=== PATIENT | female | born 1955 | race Two or more races ===

== ENCOUNTER 2017-11-04 15:31 | Inpatient (IN) | payer BC ==
[~2017-11-04] VITALS: Ht 170.2 cm; Wt 50.8 kg
[2017-11-04] MEDS ORDERED: IV NORMAL SALINE 1000 ML BAG IV ONE (15:45)
--- NOTE | 2017-11-04 15:49 | NUR ---
PT IS IN ROOM #1B. DR DUVAL EVALUATED THE PT.
[2017-11-04 15:56] LABS: BASOPHILS % (AUTO) 0.3 % (0.0-2.0); HEMATOCRIT 43.6 % (31.2-41.9); HEMOGLOBIN 14.5 g/dL (10.9-14.3); LYMPHOCYTES # (AUTO) 2.2 K/uL (20.0-40.0); LYMPHOCYTES % (AUTO) 18.3 % (20.5-51.5); MEAN CORPUSCULAR HEMOGLOBIN 30.3 uug (24.7-32.8); MEAN CORPUSCULAR HGB CONC 33 g/dL (32.3-35.6); MONOCYTES # (AUTO) 1.3 K/uL (2.0-10.0); MONOCYTES % (AUTO) 10.8 % (0.0-11.0); NEUTROPHILS # (AUTO) 8.5 K/uL (1.8-8.9); NEUTROPHILS % (AUTO) 70.6 % (38.5-71.5); PLATELET COUNT (AUTO) 234 K/uL (179-408); RED BLOOD CELL COUNT(AUTO) 4.79 MIL/uL (3.63-4.92)
[2017-11-04 16:03] LABS: POTASSIUM 3.5 mmol/L (3.5-5.1)
[2017-11-04 16:08] LABS: BILIRUBIN,DIRECT 0.2 mg/dL (0.0-0.2); TOTAL PROTEIN, SERUM 8.3 g/dL (6.4-8.2)
--- NOTE | 2017-11-04 16:33 | NUR ---
Contacted [email or web address] for admittion panel, awaiting call back from Dr Vazquez.
[2017-11-04 16:36] LABS: *BLOOD, URINE 3+ (NEGATIVE); *CLARITY,URINE SLIGHTLY CLOUDY (CLEAR); *COLOR,URINE Brown (YELLOW); *KETONES,URINE 1+ (NEGATIVE); *PROTEIN,URINE 2+ (NEGATIVE); *UROBILINOGEN,URINE 0.2 E.U./dl (NORMAL); LEUKOCYTE ESTERASE ,URINE 2+ (NEGATIVE); NITRITE, URINE NEGATIVE (NEGATIVE); UGLUCOSE NEGATIVE (NEGATIVE)
[2017-11-04] MEDS ORDERED: AMOXICILLIN TRIHYDRATE 250 MG CAPSULE PO ONE (16:45)
[2017-11-04] MEDS ORDERED: CLINDAMYCIN PHOSPHATE IV 600 MG in IV DEXTROSE 5% 100 ML IV ONE (16:45)
[2017-11-04 16:46] LABS: *BILIRUBIN,URIN 1+ (NEGATIVE)
[2017-11-04] MEDS ORDERED: CLINDAMYCIN PHOSPHATE 600 MG/4 ML VIAL ONE (16:50)
[2017-11-04] MEDS ORDERED: AMLODIPINE 5 MG TABLET ONE (16:56)
[2017-11-04 16:59] LABS: RBC,URINE 20-50 /HPF (0-3)
[2017-11-04 17:00] LABS: BACTERIA,URINE FEW /HPF (NONE SEEN); SQUAMOUS EPITHELIAL CELL,UR FEW /HPF (NONE SEEN); WBC,URINE 20-50 /HPF (0-3)
[2017-11-04] MEDS ORDERED: AMLODIPINE 5 MG TABLET PO ONE (17:00)
--- NOTE | 2017-11-04 17:49 | NUR ---
REPORT WAS GIVEN TO DRAPERY AND UPHOLSTERY ESTIMATOR. PT WAS TRANSFERED TO TELEMETRY ROOM #211.
--- NOTE | 2017-11-04 18:15 | NUR ---
RECEIVED PATIENT FROM ER VIA GURNEY. PT ALERT, IN NO DISTRESS. PT ADMITTED TO TELE UNDER THE CARE OF DR. KONG. DX: SYNCOPE. BELONGING LIST, ADMISSION PROCESS AND CARE PLAN INITIATED. NOTIFIED FOR NEW ADMISSION ORDERS.
[2017-11-04 18:20] VITALS: BP 163/94
--- NOTE | 2017-11-04 18:20 | NUR ---
PATIENT NOTED TO HAVE RIGHT LOWER JAW SWELLING DUE TO DENTAL ABSCESS REPORTED BY PATIENT.
[2017-11-04 18:40] VITALS: BP 158/95
[2017-11-04 19:00] VITALS: BP 139/81
--- NOTE | 2017-11-04 19:15 | NUR ---
RECEIVED PT AWAKE, ALERT, AND ORIENTEDX4. PT SHOWS NO SIGNS OF DISTRESS.PT NO COMPLAINT OF DIZZINESS AND SOB. PT IV INTACT AND PATENT. CALL LIGHT WITHIN REACH. BED ALARM . SAFETY AND COMFORT PROVIDED. WILL CONTINUE TO MONITOR.
[2017-11-04] MEDS ORDERED: ZOLPIDEM 5 MG TABLET PO PRN (20:15)
[2017-11-04] MEDS ORDERED: ONDANSETRON 4 MG/2 ML VIAL IV PRN (20:15)
[2017-11-04] MEDS ORDERED: Z GUARD REMEDY PASTE 57 GM TUBE TOP PRN (20:15)
[2017-11-04] MEDS ORDERED: ACETAMINOPHEN 325 MG TABLET PO PRN (20:15)
[2017-11-04] MEDS ORDERED: MAGNESIUM HYDROXIDE 30 ML LIQUID UDC PO PRN (20:15)
[2017-11-04] MEDS: IV NS 1000 ML 1,000 ML IV PRN (20:36)
[2017-11-04] MEDS ORDERED: CEFTRIAXONE 1 G in IV DEXTROSE 5% 50 ML IV SCH (21:00)
[2017-11-04] MEDS ORDERED: ENOXAPARIN SODIUM 40 MG/0.4 ML DISP.SYRIN SQ SCH (21:00)
[2017-11-05] VITALS: BP 122/79
[2017-11-05 04:00] VITALS: BP 132/80
[2017-11-05 06:37] LABS: BASOPHILS % (AUTO) 0.5 % (0.0-2.0); EOSINOPHILS % (AUTO) 0.4 % (0.0-7.0); HEMATOCRIT 37.2 % (31.2-41.9); LYMPHOCYTES # (AUTO) 3.1 K/uL (20.0-40.0); LYMPHOCYTES % (AUTO) 35.8 % (20.5-51.5); MEAN CORPUSCULAR HEMOGLOBIN 30.7 uug (24.7-32.8); MEAN CORPUSCULAR HGB CONC 34 g/dL (32.3-35.6); MEAN CORPUSCULAR VOLUME 90.8 fL (75.5-95.3); MONOCYTES # (AUTO) 1.1 K/uL (2.0-10.0); MONOCYTES % (AUTO) 12.6 % (0.0-11.0); NEUTROPHILS # (AUTO) 4.3 K/uL (1.8-8.9); NEUTROPHILS % (AUTO) 50.7 % (38.5-71.5); PLATELET COUNT (AUTO) 201 K/uL (179-408)
[2017-11-05 06:38] LABS: BILIRUBIN,TOTAL 0.6 mg/dL (0.2-1.0); CREATININE 0.7 mg/dL (0.6-1.3); MAGNESIUM 1.8 mg/dL (1.8-2.4); PHOSPHOROUS 3.2 mg/dL (2.5-4.9); POTASSIUM 3.8 mmol/L (3.5-5.1); TOTAL PROTEIN, SERUM 6.4 g/dL (6.4-8.2)
[2017-11-05 06:45] LABS: THYROID STIMULATING HORMONE 0.311 mIU/mL (0.358-3.740)
[2017-11-05 06:53] LABS: HEMOGLOBIN 12.6 g/dL (10.9-14.3); WHITE BLOOD COUNT (AUTO) 8.5 K/uL (3.8-11.8)
--- NOTE | 2017-11-05 06:54 | NUR ---
PT SLEPT THROUGHOUT THE SHIFT.PT SHOWS NO SIGNS OF DISTRESS. PRESCRIBED MEDICATION GIVEN AND PT TOLERATED IT WELL. IV INTACT. SAFETY AND COMFORT PROVIDED. WILL ENDORSE TO INCOMING NURSE FOR CONTINUITY OF CARE.
--- NOTE | 2017-11-05 08:00 | NUR ---
AWAKE COOPERATE WELL NO SOB OR DIZZINESS OR PAIN ON FALL PRECAUTION CALL LIGHT IN REACH AND BED ALARM ON,CONTINUE IVF ONLFA INFUSION WELL
[2017-11-05] MEDS: IV NS 1000 ML 1,000 ML IV PRN (08:52)
[2017-11-05] MEDS ORDERED: ASPIRIN EC 81 MG TABLET.DR PO SCH (09:00)
[2017-11-05 10:00] VITALS: BP_SYST 133; BP_SYST 134; BP_SYST 165; BP_DIAS 83; BP_DIAS 87; BP_DIAS 93
--- NOTE | 2017-11-05 10:30 | NUR ---
D/C INSTRUCTION REGARDING F/U WITH OWN PMD AND DENTIST AND CONTINUE MEDICATION DENTIST PROVIDED/ANTIBIOTICS AND EDUCATION PK GIVE ,UNDERSTAND AND SIGNS D/C SHEET HL WAS DISCONTINUE PRIOR D/C HOME TODAY ,NO DIZZINESS OR PAIN
[2017-11-05 11:43] VITALS: BP 145/84
--- NOTE | 2017-11-05 12:00 | NUR ---
DR GONZALES SEEN PATIENT AND TELE WAS D/C ORDER
--- NOTE | 2017-11-05 13:30 | NUR ---
D/C HOME ACCOMPANIES WITH SON CONDITION STABLE
== END 2017-11-05 13:30 | disposition home or self-care (01) | DRG 48 ==
LOC: ER 15:32 → TELE 17:53
PROVIDERS: ADMIT Nurse Practitioner Acute Care; ATTEND Nurse Practitioner Acute Care
DX: G90.8 Other disorders of autonomic nervous system (principal); I11.9 Hypertensive heart disease without heart failure; D72.829 Elevated white blood cell count, unspecified; K04.7 Periapical abscess without sinus; Z85.41 Personal history of malignant neoplasm of cervix uteri; N39.0 Urinary tract infection, site not specified; F17.210 Nicotine dependence, cigarettes, uncomplicated; Z71.6 Tobacco abuse counseling; Z86.39 Personal history of other endocrine, nutritional and metabolic disease
CPT/HCPCS: 36415; 70030-TC; 71045; 83735; 84100; 84443; 85025; 85730; 87040; 93005; 93307; 93880; A4663; J0696; J1650; J3490; J7030; J7060

== ENCOUNTER 2018-02-09 11:22 | Emergency (ER) | payer BC, MEDICAID ==
[~2018-02-09] VITALS: Ht 170.2 cm; Wt 59.0 kg
--- NOTE | 2018-02-09 11:47 | NUR ---
RECECIVED A 62 Y/O FEMALE PT C/O LOWER RT JAW PAIN , NOTED SWOLEN RT SIDE FACE. PT PUT IN ROOM, AWAITING TO BE SEEN BY
[2018-02-09] MEDS ORDERED: CLINDAMYCIN HCL 300 MG CAPSULE ONE (14:00)
[2018-02-09] MEDS: CLINDAMYCIN HCL 150 MG CAPSULE PO ONE (14:00)
--- NOTE | 2018-02-09 14:19 | NUR ---
SEEN BY MD, ORDERED FOR DISCHARGE PT RECEIVED FIRST DOSE OF ABX PO, PRESCRIPTION AND DISCHARGE INSTRUCTIONS GIVEN. PT LEFT WALKING
== END 2018-02-09 14:57 | disposition home or self-care (01) ==
LOC: ER 11:22
DX: L03.211 Cellulitis of face (principal); K04.7 Periapical abscess without sinus
CPT/HCPCS: A4663